=== PATIENT | female | born 1950 | race American Indian/Alaskan Native ===

== ENCOUNTER 2016-07-20 13:01 | Outpatient (CLI) | payer MEDICARE | END 2016-07-20 13:02 | disposition home or self-care (01) | LOC: VAS 13:01 | PROVIDERS: ATTEND Orthopaedic Surgery | DX: M17.12 Unilateral primary osteoarthritis, left knee (principal) ==

== ENCOUNTER 2016-07-21 12:16 | Emergency (ER) | payer MEDICARE ==
--- NOTE | 2016-07-21 12:42 | Emergency Department Report ---
Entered by KARIE SCHUMACHER, acting as scribe for KEENAN COX NP. Chief Complaint: Extremity Injury, Lower Stated Complaint: SWOLLEN LEG/FOOT/PRIOR INFECTION Time Seen by Provider: 07/21/16 12:35 - HPI History of Present Illness: 66 y/o female presents c/o bilateral leg swelling that started 2 weeks ago. She has received injections in both knees, and previous injection was only in her right knee yesterday. She notes no trauma to the area. Pt denies chest pain or SOB - ROS Review of Systems: +LE swelling -SOB -chest pain - Exam Vital Signs: Vital Signs 07/21/16 12:30 Temperature 98.8 F Pulse Rate 90 Respiratory 22 Rate Blood Pressure 130/57 O2 Sat by Pulse 100 Oximetry Physical Exam: PT looks well, non toxic + LLE edema MSE screening note: Focused history and physical exam performed. Due to findings the following was ordered: Reviewed US report from yesterday labs ordered ED Disposition for MSE Condition: Stable This documentation as recorded by the scribe,KARIE SCHUMACHER,accurately reflects the service I personally performed and the decisions made by ,KEENAN COX NP.
[2016-07-21 13:00] LABS: Basophils % (Auto) 1.3 % (0.0-1.8); Eosinophils % (Auto) 0.7 % (0.0-4.3); Hematocrit 30.5 % (30.3-42.9); Hemoglobin 9.4 gm/dl (10.1-14.3); Mean Corpuscular HGB Conc 31 % (30-34); Mean Corpuscular Volume 72 fl (79-97); Platelet Count 374 K/mm3 (140-440); Red Blood Count 4.21 M/mm3 (3.65-5.03); Red Cell Distribution Width 16.2 % (13.2-15.2); White Blood Count 9.3 K/mm3 (4.5-11.0)
[2016-07-21 13:07] LABS: Mean Corpuscular Hemoglobin 22 pg (28-32)
[2016-07-21 13:16] LABS: Albumin 3.8 g/dL (3.9-5); Albumin/Globulin Ratio 1.3 %; BUN/Creatinine Ratio 16.11; Bilirubin,Total 0.2 mg/dL (0.1-1.2); Calcium 9.5 mg/dL (8.4-10.2); Chloride 102.3 mmol/L (98-107); Potassium 4.7 mmol/L (3.6-5.0); Total Protein 6.8 g/dL (6.3-8.2)
[2016-07-21] MEDS: NORCO 5/325 PO ONE (20:00)
--- NOTE | 2016-07-21 20:01 | Emergency Department Report ---
ED Lower Extremity HPI - General Chief Complaint: Extremity Injury, Lower Stated Complaint: SWOLLEN LEG/FOOT/PRIOR INFECTION Time Seen by Provider: 07/21/16 12:35 Source: patient Mode of arrival: Ambulatory Limitations: No Limitations - History of Present Illness Initial Comments: Patient is a 66-year-old female with history of asthma, anemia, hypertension, diabetes with bilateral chronic knee pain status post recent injection of both knees for some pain relief approximately 2 weeks ago presenting today because of left leg pain and swelling. Patient states that about a few days after she had her injection on the left knee she started noticing swelling on her left leg. She went to see her orthopedist yesterday who had stated that this may have been because of a rupture of a cyst. She states that she had a patient ultrasound done yesterday that was negative for DVT. - Related Data Home Medications Medication Instructions Recorded Confirmed Last Taken Calcium Carbonate [Caltrate 600] 600 mg PO 12/26/12 12/26/12 12/24/12 Calcium Carbonate/Vitamin D3 1 each PO 12/26/12 12/26/12 12/24/12 [Centrum Pro Nutrients Tablet] Dexlansoprazole [Dexilant] 60 mg PO QDAY 12/26/12 12/26/12 12/24/12 Exenatide Microspheres [Bydureon] 2 mg SQ 12/26/12 12/26/12 12/24/12 Ferrous Sulfate [Ferrous Sulfate 300 mg PO 12/26/12 12/26/12 12/24/12 Oral Liq 300 Mg/5 Ml] Fexofenadine HCl [Mary] 60 mg PO BID 12/26/12 12/26/12 12/24/12 Fluticasone Furoate [Veramyst 1 spray NS DAILY 12/26/12 12/26/12 12/24/12 NASAL 27.5 MCG/SPRAY] Fluticasone Propionate [Flovent 250 mcg IH 12/26/12 12/26/12 12/24/12 Diskus] Fluticasone/Salmeterol(Nf) [Advair 12/26/12 12/26/12 12/24/12 HFA 230-21 mcg] Folic Acid 20 mg PO QDAY 12/26/12 12/26/12 12/24/12 Levalbuterol [Xopenex] 0.63 mg IH 12/26/12 12/26/12 12/24/12 Levalbuterol [Xopenex] 1.25 mg IH 12/26/12 12/26/12 12/24/12 Levocetirizine Dihydrochloride 5 mg PO QPM 12/26/12 12/26/12 12/24/12 [Xyzal] Methotrexate Sodium/Pf 25 mg IJ 12/26/12 12/26/12 12/12/12 [Methotrexate 1 Gram/40 ml Vial] Olmesartan (Nf) [Benicar] 20 mg PO QDAY 12/26/12 12/26/12 12/24/12 [place]-3S/Dha/Epa/Fish Oil/D3 [Fish 1 each PO 12/26/12 12/26/12 12/24/12 Luj-Ukbkf-7-Vit D Softgel] Prednisone 10 mg PO 12/26/12 12/26/12 12/24/12 Roflumilast (Nf) [Daliresp (Nf)] 500 mcg PO 12/26/12 12/26/12 12/20/12 Triamter/Hctz 37.5-25 mg 1 tab PO QDAY 12/26/12 12/26/12 12/24/12 [Maxzide-25] Vit A & D3 in Cod Liver Oil [Cod 1 each PO 12/26/12 12/26/12 12/24/12 Liver Oil Softgel] Zileuton [Zyflo Cr] 600 mg PO 12/26/12 12/26/12 12/24/12 buPROPion SR [Wellbutrin SR] 150 mg PO BID 12/26/12 12/26/12 12/24/12 Previous Rx's Medication Instructions Recorded Last Taken Type HYDROcodone/APAP 5-325 [[place] 1 each PO Q6HR PRN #6 tablet 07/21/16 Unknown Rx 5/325] Allergies Allergy/AdvReac Type Severity Reaction Status Date / Time codeine AdvReac Rash Verified 12/26/12 10:08 naproxen AdvReac Rash Verified 12/26/12 10:09 ED Review of Systems ROS: Stated complaint: SWOLLEN LEG/FOOT/PRIOR INFECTION Other details as noted in HPI Comment: All other systems reviewed and negative Constitutional: denies: chills, fever ENT: denies: ear pain Respiratory: denies: cough Cardiovascular: denies: chest pain Gastrointestinal: denies: abdominal pain, nausea, vomiting Genitourinary: denies: dysuria Skin: denies: rash ED Past Medical Hx - Past Medical History Previous Medical History?: Yes Hx Hypertension: Yes Hx Diabetes: Yes Hx Asthma: Yes - Surgical History Past Surgical History?: Yes Hx Cholecystectomy: Yes Hx Breast Surgery: Yes (BREAST REDUCTION) - Social History Smoking Status: Never Smoker Substance Use Type: None - Medications Home Medications: Home Medications Medication Instructions Recorded Confirmed Last Taken Type Calcium Carbonate [Caltrate 600] 600 mg PO 12/26/12 12/26/12 12/24/12 History Calcium Carbonate/Vitamin D3 1 each PO 12/26/12 12/26/12 12/24/12 History [Centrum Pro Nutrients Tablet] Dexlansoprazole [Dexilant] 60 mg PO QDAY 12/26/12 12/26/12 12/24/12 History Exenatide Microspheres [Bydureon] 2 mg SQ 12/26/12 12/26/12 12/24/12 History Ferrous Sulfate [Ferrous Sulfate 300 mg PO 12/26/12 12/26/12 12/24/12 History Oral Liq 300 Mg/5 Ml] Fexofenadine HCl [Mary] 60 mg PO BID 12/26/12 12/26/12 12/24/12 History Fluticasone Furoate [Veramyst 1 spray NS DAILY 12/26/12 12/26/12 12/24/12 History NASAL 27.5 MCG/SPRAY] Fluticasone Propionate [Flovent 250 mcg IH 12/26/12 12/26/12 12/24/12 History Diskus] Fluticasone/Salmeterol(Nf) [Advair 12/26/12 12/26/12 12/24/12 History HFA 230-21 mcg] Folic Acid 20 mg PO QDAY 12/26/12 12/26/12 12/24/12 History Levalbuterol [Xopenex] 0.63 mg IH 12/26/12 12/26/12 12/24/12 History Levalbuterol [Xopenex] 1.25 mg IH 12/26/12 12/26/12 12/24/12 History Levocetirizine Dihydrochloride 5 mg PO QPM 09/12/26/12 12/24/12 History [Xyzal] Methotrexate Sodium/Pf 25 mg IJ 12/26/12 12/26/12 12/12/12 History [Methotrexate 1 Gram/40 ml Vial] Olmesartan (Nf) [Benicar] 20 mg PO QDAY 12/26/12 12/26/12 12/24/12 History [place]-3S/Dha/Epa/Fish Oil/D3 [Fish 1 each PO 12/26/12 12/26/12 12/24/12 History Etl-Qnwxh-6-Vit D Softgel] Prednisone 10 mg PO 12/26/12 12/26/12 12/24/12 History Roflumilast (Nf) [Daliresp (Nf)] 500 mcg PO 12/26/12 12/26/12 12/20/12 History Triamter/Hctz 37.5-25 mg 1 tab PO QDAY 12/26/12 12/26/12 12/24/12 History [Maxzide-25] Vit A & D3 in Cod Liver Oil [Cod 1 each PO 12/26/12 12/26/12 12/24/12 History Liver Oil Softgel] Zileuton [Zyflo Cr] 600 mg PO 12/26/12 12/26/12 12/24/12 History buPROPion SR [Wellbutrin SR] 150 mg PO BID 12/26/12 12/26/12 12/24/12 History HYDROcodone/APAP 5-325 [[place] 1 each PO Q6HR PRN #6 tablet 07/21/16 Unknown Rx 5/325] ED Physical Exam - General Limitations: No Limitations General appearance: alert - Head Head exam: Absent: atraumatic - Eye Eye exam: Present: normal appearance - ENT ENT exam: Present: normal exam - Neck Neck exam: Present: normal inspection - Respiratory Respiratory exam: Absent: respiratory distress - Cardiovascular Cardiovascular Exam: Present: regular rate - GI/Abdominal GI/Abdominal exam: Present: soft. Absent: distended, tenderness - Extremities Exam Extremities exam: Present: other (moderate pitting edema to the left lower extremity below the knee, no focal tenderness, no erythema, no warmth, no crepitus, sensation intact distally, is able to move her toes and flex and extend the ankle and the knee, DP and PT pulses bilaterally 2+, capillary refill less than 2 seconds) - Neurological Exam Neurological exam: Present: alert, oriented X3 - Psychiatric Psychiatric exam: Present: normal affect - Skin Skin exam: Present: intact ED Course Vital Signs 07/21/16 07/21/16 12:30 18:50 Temperature 98.8 F 98 F Pulse Rate 90 81 Respiratory 22 18 Rate Blood Pressure 130/57 Blood Pressure 137/65 [Right] O2 Sat by Pulse 100 98 Oximetry - Reevaluation(s) Reevaluation #1: 07/21/16 20:19 Sling to the patient her lab results. Explained that her labs showed some mild kidney dysfunction. This needs to be followed up with her primary care doctor. Patient understood and will plan to follow up with her primary doctor. Explained to her that the ultrasound was negative from yesterday and that she should elevate her leg at night to decrease the swelling as well as use compression stockings or Darell wrap's. Patient agrees with plan. ED Lower Extremity MDM - Lab Data Result diagrams: 07/21/16 12:37 07/21/16 12:37 Critical care attestation.: If time is entered above; I have spent that time in minutes in the direct care of this critically ill patient, excluding procedure time. ED Disposition Clinical Impression: Leg pain, left Disposition: DISCHARGED TO HOME OR SELFCARE Is pt being admited?: No Does the pt Need Aspirin: No Condition: Stable Additional Instructions: Follow-up with the primary care doctor in the next 3-5 days. Make sure to take and your lab results which are attached to discuss your kidney function. Please also follow-up with your orthopedist in the next [address] taking [place]. Prescriptions: HYDROcodone/APAP 5-325 [[place] 5/325] 1 each PO Q6HR PRN #6 tablet PRN Reason: Pain Referrals: ONIEL GAYLE MD [Primary Care Provider] - 3-5 Days
[2016-07-21 21:04] VITALS: BP 115/69
== END 2016-07-21 21:04 | disposition home or self-care (01) ==
LOC: ED 12:16
DX: M79.605 Pain in left leg (principal); I10 Essential (primary) hypertension; E11.9 Type 2 diabetes mellitus without complications; J45.909 Unspecified asthma, uncomplicated; Z88.8 Allergy status to other drugs, medicaments and biological substances
CPT/HCPCS: 36415; 80053; 83880; 85025; 99283

== ENCOUNTER 2017-02-16 09:46 | Outpatient (CLI) | payer MEDICARE ==
--- NOTE | 2017-02-16 10:33 | Mammography Report ---
Screening mammogram: The patient has bilateral breast reductions. There is mild fibroglandular distortion in both breasts consistent with prior surgery. The breast pattern otherwise generally fatty replaced. Scattered benign calcifications are noted bilaterally. No interval change since our exam of February 2016. CAD used. Impression: Stable exam. Recommendation: Annual mammogram followup. BI-RADS CATEGORY: 1 = Negative ACR BI-RADS MAMMOGRAPHIC CODES: 0 = Needs additional imaging evaluation; 1 = Negative; 2 = Benign; 3 = Probably benign; 4 = Suspicious; 5 = Malignant; 6 = Known biopsy-proven malignancy COMMENT: 1. Dense breast tissue, i.e., adenosis, fibrocystic changes, etc., may obscure an underlying neoplasm. 2. Approximately 10% of cancers are not detected with mammography. 3. A negative mammography report should not delay biopsy if a clinically suspicious mass is present.
== END 2017-02-16 09:47 | disposition home or self-care (01) ==
LOC: MAMMO 09:46
PROVIDERS: ATTEND Family Medicine
DX: Z12.31 Encounter for screening mammogram for malignant neoplasm of breast (principal); Z98.890 Other specified postprocedural states; Z79.899 Other long term (current) drug therapy
CPT/HCPCS: 77067; G0202

== ENCOUNTER 2019-02-22 09:33 | Outpatient (CLI) | payer MEDICARE ==
--- NOTE | 2019-02-22 14:49 | Mammography Report ---
DIGITAL SCREENING MAMMOGRAM WITH CAD, 02/22/2019 INDICATION: Routine screening mammography. TECHNIQUE: Digital bilateral 2D mammography was obtained in the craniocaudal and mediolateral obliq ue projections. This examination was interpreted with the benefit of Computer-Aided Detection analysi s. COMPARISON: 02/21/2018 FINDINGS: Breast Density: There are scattered areas of fibroglandular density. There is no evidence of dominant mass, suspicious calcifications or architectural distortion in eithe r breast. IMPRESSION: No mammographic evidence of malignancy. Follow up recommendation: Routine yearly BI-RADS Category 2: Benign. A "normal" or negative report should not discourage follow up or biopsy of a clinically significant f inding. A written summary of these findings will be mailed to the patient. The patient will be entered into a mammography reporting system which will generate a reminder letter for the patient's next appointmen t at the appropriate interval. The [employer] recommends yearly mammograms starting at age 40 and continuing as l mike as a woman is in good health. Breast MRI is recommended for women with an approximate 20-25% or greater lifetime risk of breast cancer, including women with a strong family history of breast or ova sang cancer or who have been treated for Hodgkin's disease. Signer Name: Allan Donaldson MD Signed: 02/22/2019 2:45 PM Workstation Name: [id number]
== END 2019-02-22 09:34 | disposition home or self-care (01) ==
LOC: MAMMO 09:33
PROVIDERS: ATTEND Family Medicine
DX: Z12.31 Encounter for screening mammogram for malignant neoplasm of breast (principal)
CPT/HCPCS: 77067

== ENCOUNTER 2020-02-26 09:48 | Outpatient (CLI) | payer MEDICARE ==
--- NOTE | 2020-02-26 17:43 | Mammography Report ---
DIGITAL SCREENING MAMMOGRAM WITH CAD, 02/26/2020 CLINICAL INFORMATION / INDICATION: Routine screening mammography. SCREENING TECHNIQUE: Digital bilateral 2D mammography was obtained in the craniocaudal and mediolateral obliqu e projections. This examination was interpreted with the benefit of Computer-Aided Detection analysis . COMPARISON: Prior mammograms 02/22/2019 and 02/21/2018 FINDINGS: Breast Density: There are scattered areas of fibroglandular density. No dominant mass, suspicious calcifications, or architectural distortion in either breast. There is stable benign post reduction change seen in both breasts. There has been no significant jacobson ge compared with the prior examinations. IMPRESSION: No mammographic evidence of malignancy. Follow up recommendation: Routine yearly BI-RADS Category 2: Benign. A "normal" or negative report should not discourage follow up or biopsy of a clinically significant f inding. A written summary of these findings will be mailed to the patient. The patient will be entered into a mammography reporting system which will generate a reminder letter for the patient's next appointmen t at the appropriate interval. The [employer] recommends yearly mammograms starting at age 40 and continuing as l mike as a woman is in good health. Breast MRI is recommended for women with an approximate 20-25% or greater lifetime risk of breast cancer, including women with a strong family history of breast or ova sang cancer or who have been treated for Hodgkin's disease. Signer Name: Julia Zheng MD Signed: 02/26/2020 5:38 PM Workstation Name: [id number]
== END 2020-02-26 09:49 | disposition home or self-care (01) ==
LOC: MAMMO 09:48
PROVIDERS: ATTEND Family Medicine
DX: Z12.31 Encounter for screening mammogram for malignant neoplasm of breast (principal); N64.89 Other specified disorders of breast
CPT/HCPCS: 77067